=== PATIENT | male | born 1995 | race Two or more races ===

== ENCOUNTER 2024-08-11 17:36 | Emergency (ER) | payer MEDICAID, SELFPAY ==
[2024-08-11 17:43] VITALS: BP 116/51; PULSE 130; RESP 19; TEMP 36.8; O2SAT 95; BMI 22.2
--- NOTE | 2024-08-11 17:50 | PD.EDMEDCL ---
ED Medical Clearance RME/HPI General Stated complaint: MEDICAL CLEARANCE Time Seen by Provider: 08/11/24 17:40 Arrival date/time: 08/11/24 17:36 RME / HPI RME / HPI Narrative: 29-year-old male patient with no significant medical history, came in for evaluation regarding medical clearance. Apparently patient was drinking alcohol, and apparently stumbled and sustained 1 cm gaping laceration to the scalp of the head. Patient denies any LOC. Denies any nausea or vomiting. Denies any neck pain. Patient is ambulatory denies any complaints. His tetanus vaccination is unknown. Related Information Home Medications ?Medication ?Instructions ?Recorded ?Confirmed No Known Home Medications 04/02/18 04/16/18 Allergies Allergy/AdvReac Type Severity Reaction Status Date / Time No Known Allergies Allergy Verified 04/02/18 10:39 Review of Systems Review of Systems Narrative Review of Systems: Review of system reviewed and within normal limits except mentioned in HPI ED Exam Narrative Physical exam: VITAL SIGNS: Reviewed. GENERAL APPEARANCE: Alert and interactive, follows commands, no acute distress, HEAD AND FACE: 1 cm gaping laceration, scalp, top of the head, no active bleeding noted ENT: PERRL, pink conjunctivitis, eyelid no trauma, Mucous membrane moist. NECK: Supple, nontender, no nuchal rigidity. RECTAL: Deferred. GENITAL: Deferred. NEUROLOGICAL: Gross motor function intact sensory function intact, Appropriate for age. MUSCULOSKELETAL: low back nontender, full range of motion. EXTREMITIES: Nontender, full range of motion. SKIN: Color pink, dry, no rash, no lacerations, no abrasions, no contusions. LYMPHATICS: Deferred. Course Quality Measures none Orders Category Date Time Status Tet,Diphth,Pertuss(Acell)-Tdap [Boostrix Vacc] Med 08/11/24 17:46 Discontinued 0.5 ml IMI .ONCE ONE Vital Signs Vital signs: Vital Signs Temperature 98.2 F 08/11/24 17:43 Pulse Rate 130 H 08/11/24 17:43 Respiratory Rate 19 08/11/24 17:43 Blood Pressure 116/51 L 08/11/24 17:43 Pulse Oximetry (%) 95 08/11/24 17:43 Oxygen Delivery Method Room Air 08/11/24 17:43 Medical Clearance MDM Narrative MDM Narrative:: 31-year-old female patient 2 para 1, came in via private vehicle, for evaluation regarding worsening pelvic cramping and bleeding. Patient was seen here 2 days ago for the same complaints. hCG during time was noted to be 691. Ultrasound did not show any intrauterine gestation except for uterine fibroids. This morning patient developed worsening pelvic pain and cramping, and passing of blood clots. It was 8 out of 10 prior to arrival. Denies any dizziness. Patient is ambulatory. Denies any other complaints. Wound cleansed with skin cleanser, and staple applied without anesthesia with patient consent x 2. Patient tolerated the procedure well. Patient received tetanus vaccine. Patient data External records reviewed:: None Clinical information provided by:: none Social determinants that could affect healthcare access:: none Patient has the following chronic illnesses:: None How is presenting disease/condition affected by chronic disease/condition?: no chronic disease Evaluation data The following diagnostics were reviewed and interpreted by me:: other (specify) (None) Lab and/or radiology exams considered but not ordered:: None Interpretation Summary: None Medications / Prescriptions Medications or Prescriptions considered but not ordered:: None Medication administrations:: Medication Administration History Discontinued Medications Diphtheria/Tetanus/Acell Pertussis (Diphth,Pertuss(Acell),Tet Vac 0.5 Ml Vial) 0.5 ml IMi .ONCE ONE Stop: 08/11/24 17:47 Boostrix Consultations Consultation(s) initiated? (list below): No Diagnosis Medical Clearance Differential Diagnosis: other (Scalp laceration, medical clearance for incarceration) Most likely diagnosis given after review of the tests above:: Scalp laceration, medical clearance for incarceration Admission Indicated Admission indicated?: not indicated Explain why admission is indicated or not indicated:: Patient is medically cleared Admission Request Was there a request for admission?: No Disposition Plan Disposition Plan: Discharge Discharge Attestation Discharge Attestation: Patient condition: Stable Discharge Plan Plan Patient Disposition: HOME (Self Care) Disposition Comment: stable Prescriptions/Referrals Prescriptions/Med Rec: No Action No Known Home Medications Problem List Clinical Impression: Laceration of scalp, Medical clearance for incarceration Patient/Caregiver Discharge Instructions Discharge Activity: activity as tolerated Education Materials: ED Laceration: All Closures Additional Instructions: Thank you for the opportunity for serving you today. You are stable for discharged . You are advised to: Follow-up with your PCP in 1 to 2 days once you get out of halfway Return to ED for worsening of symptoms Increase oral fluids For removal of neli in 7 to 10 days Daily dressing Congespirin as needed Print Language: Irish Stand Alone Forms: De[facility]re Award Info., Patient Portal Info Letter PA/DEVELOPMENT DISABILITY SPECIALIST Supervising Physician PA/DEVELOPMENT DISABILITY SPECIALIST Supervising Physician: MD Nayla
[2024-08-11] MEDS: DIPHTH,PERTUSS(ACELL),TET VAC 0.5 ML VIAL IMi (17:56)
== END 2024-08-11 18:22 | disposition home or self-care (01) ==
LOC: SERX 18:10
PROVIDERS: Emergency Provider Emergency Medicine
DX: Z02.89 Encounter for other administrative examinations (principal); S01.01XA Laceration without foreign body of scalp, initial encounter; Z23 Encounter for immunization
CPT/HCPCS: 12001; 90471; 90715; 99283